=== PATIENT | male | born 1995 | race Caucasian/White ===

== ENCOUNTER 2017-08-30 19:53 | Emergency (ER) | payer OTHER ==
[2017-08-30] MEDS ORDERED: Tetracaine 0.5% OPTH.SOL 4 ML* 1 DROP BTL BOTH EYES ONE (21:18)
[2017-08-30] MEDS ORDERED: Fluorescein Sodium TOPICAL* 1 MG TEST ONE ×2 (21:25→21:26)
[2017-08-30] MEDS ORDERED: oxyCODONE/Acetamin 5/325 MG* TAB PO ONE (21:33)
[2017-08-30] MEDS ORDERED: Ibuprofen TAB* 800 MG PO ONE (21:33)
[2017-08-30] MEDS ORDERED: Olopatadine 0.1% OPHTH (NF) 1 DROP BTL BOTH EYES SCH (21:47)
[2017-08-30] MEDS ORDERED: Ciprofloxacin 0.3% OPTH.SOL* 5 ML BTL BOTH EYES SCH (22:00)
[2017-08-30 23:19] VITALS: BP 116/75
--- NOTE | 2017-08-30 23:39 | ED ---
Juan Jose Brandon Julia, scribed for Shannan Kaba MD on 08/30/17 at 2119 . Throat Pain/Nasal Congestion - HPI Summary HPI Summary: This patient is a 22 year old M presenting to [facility] accompanied by friends with a chief complaint of sharp intermittent bilateral eye pain gradually worsening since this morning. Patient denies vision changes, fever, or itching. The patient rates the pain 5/10 in severity. Symptoms aggravated by light. He states that his R eye pain is currently resolved but is still present in L eye. He states intermittent episodes occur every minute lasting for a few seconds. He has not used a tanning bed or has been in the sun for prolonged periods of time. He is unaware of any allergies. He uses contacts daily, but states no recent changes to his contact routine, solution, or contacts. - History of Current Complaint Chief Complaint: EDEyeProblem Time Seen by Provider: 08/30/17 21:02 Hx Obtained From: Patient Onset/Duration: Lasting Hours, Still Present Severity: Worse Since: - gradually beginning this morning - Allergies/Home Medications Allergies/Adverse Reactions: Allergies Allergy/AdvReac Type Severity Reaction Status Date / Time No Known Allergies Allergy Verified 08/30/17 20:08 PMH/Surg Hx/FS Hx/Imm Hx Sensory History: Reports: Hx Contacts or Glasses EENT History: Denies: Hx Deafness Infectious Disease History: No Infectious Disease History: Denies: Traveled Outside the [place] in Last 30 Days - Family History Known Family History: Positive: Diabetes, Other - cancer - Social History Occupation: Student Review of Systems Negative: Fever Eyes: Negative - vision changes or itching Positive: Erythema, Other - pain All Other Systems Reviewed And Are Negative: Yes Physical Exam - Summary Physical Exam Summary: VITAL SIGNS: Reviewed. GENERAL: Patient is a well-developed and nourished male who is lying comfortable in the stretcher. Patient is not in any acute respiratory distress. HEAD AND FACE: No signs of trauma. No ecchymosis, hematomas or skull depressions. No sinus tenderness. EYES: PERRLA, EOMI x 2,bilateral injected conjunctiva with watery discharge, no nystagmus, no evidence of foreign body. Fluorescence reveals no corneal abrasions bilaterally EARS: Hearing grossly intact. Ear canals and tympanic membranes are within normal limits. MOUTH: Oropharynx within normal limits. NECK: Supple, trachea is midline, no adenopathy, no JVD, no carotid bruit, no c- spine tenderness, neck with full ROM. CHEST: Symmetric, no tenderness at palpation LUNGS: Clear to auscultation bilaterally. No wheezing or crackles. CVS: Regular rate and rhythm, S1 and S2 present, no murmurs or gallops appreciated. ABDOMEN: Soft, non-tender. No signs of distention. No rebound no guarding, and no masses palpated. Bowel sounds are normal. EXTREMITIES: FROM in all major joints, no edema, no cyanosis or clubbing. NEURO: Alert and oriented x 3. No acute neurological deficits. Speech is normal and follows commands. SKIN: Dry and warm Triage Information Reviewed: Yes Vital Signs On Initial Exam: Initial Vitals Temp Pulse Resp BP Pulse Ox 98.8 F 68 16 146/72 100 08/30/17 20:04 08/30/17 20:04 08/30/17 20:04 08/30/17 20:04 08/30/17 20:04 Vital Signs Reviewed: Yes Diagnostics - Vital Signs Vital Signs Temp Pulse Resp BP Pulse Ox 08/30/17 20:04 98.8 F 68 16 146/72 100 - Laboratory Lab Statement: Any lab studies that have been ordered have been reviewed, and results considered in the medical decision making process. EENT Course/Dx - Course Course Of Treatment: Patient presents with harp intermittent bilateral eye pain gradually worsening since this morning. Patient denies vision changes, fever, or itching. He has not changed his contact routine. There are no corneal abrasions. Dr. Sal states he can be treated with anithistamine and antibiotic eye drops. He agrees to see the patient in two days. Patient is instructed to call Dr. Sal if symptoms worsen before 09/01/17. Patient is given Tetracine, Ciproflaxin, and Patanol eye drops and Percocet. - Diagnoses Provider Diagnoses: Allergic conjunctivitis - Provider Notifications Discussed Care Of Patient With: Jorge Sal - optomology Time Discussed With Above Provider: 21:39 Instructed by Provider To: Other - Pt can be treated with antihistamine and antibiotic eye drops. He agrees to see patient on 09/01/17 Discharge - Discharge Plan Condition: Stable Disposition: HOME Patient Education Materials: Conjunctivitis (ED) Referrals: [facility] - Tobi BALBUENA [Primary Care Provider] - Jorge Sal MD [Medical Doctor] - 2 Days Additional Instructions: If symptoms worsen before you are able to see Dr. Sal on 08/1917 , make sure to call him at the number provided below. The documentation as recorded by the Juan Jose bello Julia accurately reflects the service I personally performed and the decisions made by me, Shannan Kaba MD.
== END 2017-08-30 23:18 | disposition home or self-care (01) ==
LOC: ED 19:53
DX: H10.13 Acute atopic conjunctivitis, bilateral (principal)
CPT/HCPCS: 99283; A9270-GY